=== PATIENT | female | born 2000 | race Caucasian/White ===

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

== ENCOUNTER 2021-09-26 11:20 | Inpatient (IN) | payer OTHER ==
[~2021-09-26] VITALS: Ht 165.1 cm; Wt 61.0 kg
[2021-09-26 12:17] VITALS: BP 102/63
[2021-09-26 12:45] VITALS: BP 96/62
[2021-09-26] MEDS: IV DEXTROSE 5 %-0.45 % NACL 1,000 ML IV SCH ×3 (12:45→21:54)
[2021-09-26 14:36] LABS: BASO % 0 % (0-3); EOS % 0 % (0-3); HEMATOCRIT 39.5 % (36.0-47.0); HEMOGLOBIN 13.5 g/dL (12.0-15.5); LYMPH # 1.2 x10^3/uL (1.0-4.8); LYMPH % 16 % (24-48); MEAN CORPUSCULAR HEMOGLOBIN 31 pg (25-35); MEAN CORPUSCULAR HGB CONC 34 g/dL (31-37); MEAN CORPUSCULAR VOLUME 90 fL (79-100); MONO # 0.3 x10^3/uL (0.0-1.1); MONO % 4 % (0-9); NEUT # 5.7 x10^3/uL (1.8-7.7); NEUT % 80 % (31-73); PLATELET COUNT 216 x10^3/uL (140-400); RED BLOOD COUNT 4.41 x10^6/uL (3.50-5.40); RED CELL DISTRIBUTION WIDTH 12.4 % (11.5-14.5); WHITE BLOOD COUNT 7.2 x10^3/uL (4.0-11.0)
[2021-09-26 14:58] LABS: CALCIUM 8.2 mg/dL (8.5-10.1); CREATININE 0.6 mg/dL (0.6-1.0); GFR 127.5; POTASSIUM 3.8 mmol/L (3.5-5.1)
[2021-09-26 15:06] LABS: ALBUMIN 3.3 g/dL (3.4-5.0); ALBUMIN/GLOBULIN RATIO 1.1 (1.0-1.7); TOTAL BILIRUBIN 0.5 mg/dL (0.2-1.0); TOTAL PROTEIN 6.2 g/dL (6.4-8.2)
[2021-09-26] MEDS: PROMETHAZINE 12.5 MG TABLET. PO PRN ×2 (15:34→21:54)
[2021-09-26 16:00] VITALS: BP 116/72
--- NOTE | 2021-09-26 17:46 | PDOC1 ---
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 For the last 5 days she has had constant N/V. 2 days ago she presented to the ER. Labs were found to be nml. An u/s was performed revealing her to be 6.0 wks with a FHR of 122. She was d/c on Monurol (abx) and Diclegis. She feels that the Diclegis has not helped much. She has been unable to ana laura liquids. Today she also began to have diarrhea. The pt was sent from the office to find a better antiemetic regime and to help with dehydration. 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 / regular SH: no tob, no EtOH FH: noncontributory Medications: Meds: Current Medications Medications (Trade) Dose Ordered Sig/Kimberlyn Route PRN Reason Start Time Stop Time Status Last Admin Dose Admin Dextrose/Sodium Chloride 1,000 ml @ 200 mls/hr Q5H IV 09/26/21 14:15 09/26/21 15:10 Promethazine HCl (Phenergan) 12.5 mg PRN Q6HRS PRN PO NAUSEA/VOMITING 09/26/21 15:30 09/26/21 15:34 Allergies: Coded Allergies: Penicillins (Verified Allergy, Intermediate, Hives, 06/21/18) Physical Exam: Vital Signs: Vital Signs Date Time Temp Pulse Resp B/P (MAP) Pulse Ox O2 Delivery O2 Flow Rate FiO2 09/26/21 12:17 98.4 61 16 102/63 (76) Room Air 98.4 PE: GENERAL: No apparent distress. Alert and oriented. HEENT: Head normocephalic, atraumatic. NECK: Supple LUNGS: Clear to auscultation. HEART: RRR, S1, S2 present, pulses intact ABDOMEN: Soft, positive bowel sounds. EXTREMITIES: No cyanosis or edema. NEUROLOGIC: Normal speech, normal tone PSYCHIATRIC: Normal affect, normal mood. SKIN: No ulceration. Labs: Laboratory Tests Test 09/26/21 12:40 09/26/21 14:26 White Blood Count 7.2 x10^3/uL (4.0-11.0) Red Blood Count 4.41 x10^6/uL (3.50-5.40) Hemoglobin 13.5 g/dL (12.0-15.5) Hematocrit 39.5 % (36.0-47.0) Mean Corpuscular Volume 90 fL (79-100) Mean Corpuscular Hemoglobin 31 pg (25-35) Mean Corpuscular Hemoglobin Concent 34 g/dL (31-37) Red Cell Distribution Width 12.4 % (11.5-14.5) Platelet Count 216 x10^3/uL (140-400) Neutrophils (%) (Auto) 80 % (31-73) H Lymphocytes (%) (Auto) 16 % (24-48) L Monocytes (%) (Auto) 4 % (0-9) Eosinophils (%) (Auto) 0 % (0-3) Basophils (%) (Auto) 0 % (0-3) Neutrophils # (Auto) 5.7 x10^3/uL (1.8-7.7) Lymphocytes # (Auto) 1.2 x10^3/uL (1.0-4.8) Monocytes # (Auto) 0.3 x10^3/uL (0.0-1.1) Eosinophils # (Auto) 0.0 x10^3/uL (0.0-0.7) Basophils # (Auto) 0.0 x10^3/uL (0.0-0.2) Sodium Level 139 mmol/L (136-145) Potassium Level 3.8 mmol/L (3.5-5.1) Chloride Level 104 mmol/L (98-107) Carbon Dioxide Level 26 mmol/L (21-32) Anion Gap 9 (6-14) Blood Urea Nitrogen 6 mg/dL (7-20) L Creatinine 0.6 mg/dL (0.6-1.0) Estimated GFR (Cockcroft-Gault) 127.5 BUN/Creatinine Ratio 10 (6-20) Glucose Level 150 mg/dL (70-99) H Calcium Level 8.2 mg/dL (8.5-10.1) L Total Bilirubin 0.5 mg/dL (0.2-1.0) Aspartate Amino Transferase (AST) 18 U/L (15-37) Alanine Aminotransferase (ALT) 25 U/L (14-59) Alkaline Phosphatase 43 U/L (46-116) L Total Protein 6.2 g/dL (6.4-8.2) L Albumin 3.3 g/dL (3.4-5.0) L Albumin/Globulin Ratio 1.1 (1.0-1.7) Amylase Level 35 U/L (25-115) Lipase 56 U/L (73-393) L Laboratory Tests 09/26/21 12:40 Laboratory Tests 09/26/21 14:26 Laboratory Tests 09/26/21 12:40 09/26/21 14:26 Assessment & Plan: A/P 21y @ 6.2 by 6wk u/s 1.) N/V failed outpt management. CBC, CMP, Shilpa/Lip ordered. Started on IVF. Will reserve the use of Zofran since less than 10 wks. Diclegis is not on the formulary so will encourage pt to take home med. Will give Phenergan. Declined sup, but was able to take PO. Will also reserve the use of glucocorticoids at this time. 2.) PCN All 3.) UTI reviewed Ucx from [place] with no growth, so will stop abx 4.) Fetus daily dopplers JOSE ALFREDO URBINA MD Sep 26, 2021 17:46
[2021-09-26 21:48] VITALS: BP 98/57
[2021-09-27 02:18] VITALS: BP 84/49
[2021-09-27] MEDS: IV DEXTROSE 5 %-0.45 % NACL 1,000 ML IV SCH (03:01)
[2021-09-27] MEDS: PROMETHAZINE 12.5 MG TABLET. PO PRN ×2 (04:51→11:35)
[2021-09-27 04:52] VITALS: BP 84/52
[2021-09-27 11:54] VITALS: BP 96/55
[2021-09-27 13:50] VITALS: BP 99/53
--- NOTE | 2021-09-27 13:50 | NUR ---
Dismiised by w/c to father in car. Rx sent to [facility] in [place]. Stable on feet .
[2021-09-27] MEDS ORDERED: PROM12.58 PO (14:07)
--- NOTE | 2021-09-27 14:13 | PDOC ---
SUCCESS COACH PROGRESS NOTE Date of Service: DATE: 09/27/21 TIME: 14:09 Subjective: Doing well. Tolerates regular diet without vomiting. Reports persistent nausea. Overall much improved since admission. Otherwise denies complaints. Objective: Objective: Sitting upright in bed, eating lunch. Desires d/c home. Vital Signs: Vital Signs Date Time Temp Pulse Resp B/P (MAP) Pulse Ox O2 Delivery O2 Flow Rate FiO2 09/26/21 12:17 98.4 61 16 102/63 (76) Room Air 98.4 09/26/21 21:48 99 Vital Signs Date Time Temp Pulse Resp B/P (MAP) Pulse Ox O2 Delivery O2 Flow Rate FiO2 09/27/21 11:54 98.3 65 16 96/55 (69) Room Air 98.3 09/27/21 04:52 99 Labs: Laboratory Tests Test 09/26/21 14:26 Sodium Level 139 mmol/L (136-145) Potassium Level 3.8 mmol/L (3.5-5.1) Chloride Level 104 mmol/L (98-107) Carbon Dioxide Level 26 mmol/L (21-32) Anion Gap 9 (6-14) Blood Urea Nitrogen 6 mg/dL (7-20) L Creatinine 0.6 mg/dL (0.6-1.0) Estimated GFR (Cockcroft-Gault) 127.5 BUN/Creatinine Ratio 10 (6-20) Glucose Level 150 mg/dL (70-99) H Calcium Level 8.2 mg/dL (8.5-10.1) L Total Bilirubin 0.5 mg/dL (0.2-1.0) Aspartate Amino Transferase (AST) 18 U/L (15-37) Alanine Aminotransferase (ALT) 25 U/L (14-59) Alkaline Phosphatase 43 U/L (46-116) L Total Protein 6.2 g/dL (6.4-8.2) L Albumin 3.3 g/dL (3.4-5.0) L Albumin/Globulin Ratio 1.1 (1.0-1.7) Amylase Level 35 U/L (25-115) Lipase 56 U/L (73-393) L Laboratory Tests 09/26/21 14:26 Laboratory Tests 09/26/21 14:26 Physical Exam: GENERAL: No apparent distress. Alert and oriented. HEENT: Head normocephalic, atraumatic. NECK: Supple LUNGS: Clear to auscultation. HEART: RRR, S1, S2 present, pulses intact ABDOMEN: Soft, positive bowel sounds. EXTREMITIES: No cyanosis or edema. NEUROLOGIC: Normal speech, normal tone PSYCHIATRIC: Normal affect, normal mood. SKIN: No ulceration. Assessment & Plan: Hyperemesis well managed with PO meds. Rx to pharmacy on chart. f/u in office 3 weeks. NVP precautions reviewed, agrees to call with worsening symptoms. GREY WAKEFIELD CNM Sep 27, 2021 14:13
[2021-09-27] MEDS ORDERED: ONDA4TAB12 PO (15:16)
[2021-09-27] MEDS ORDERED: DOXY1TAB3 PO (15:16)
[2021-09-27] MEDS ORDERED: FAMO-63 PO (15:16)
== END 2021-09-27 13:50 | disposition home or self-care (01) | DRG 832 ==
LOC: 3 SO LND 11:20
PROVIDERS: ADMIT Obstetrics & Gynecology; ATTEND Obstetrics & Gynecology
DX: O21.0 Mild hyperemesis gravidarum (principal); O23.41 Unspecified infection of urinary tract in pregnancy, first trimester; N39.0 Urinary tract infection, site not specified; E86.0 Dehydration; O26.891 Other specified pregnancy related conditions, first trimester; Z88.0 Allergy status to penicillin; Z3A.01 Less than 8 weeks gestation of pregnancy
CPT/HCPCS: 36415; 80053; 82150; 83690; 85025; J7042; G0378; Q0169